=== PATIENT | female | born 1960 | race Two or more races ===

== ENCOUNTER 2024-07-15 18:38 | Emergency (ER) | payer BC, OTHER ==
[~2024-07-15] VITALS: Ht 162.6 cm; Wt 55.0 kg
[2024-07-15 18:40] VITALS: O2SAT 99
[2024-07-15] MEDS ORDERED: MECLIZINE 25MG TABLET PO ONE (19:30)
[2024-07-15 19:43] LABS: CLARITY URINE CLEAR (CLEAR); COLOR URINE YELLOW (YELLOW); GLUCOSE URINE NEGATIVE (NEGATIVE); KETONES URINE NEGATIVE (NEGATIVE); LEUKOCYTE ESTERASE URINE NEGATIVE (NEGATIVE); NITRITE URINE NEGATIVE (NEGATIVE); OCCULT BLOOD URINE NEGATIVE (NEGATIVE); PH URINE 6.5 (4.5-8.0); PROTEIN URINE NEGATIVE (NEGATIVE); SPECIFIC GRAVITY URINE 1.005 (1.005-1.030); UROBILINOGEN URINE 0.2 E.U./dL (0.2-1.0)
[2024-07-15] MEDS: MECLIZINE 12.5MG TABLET PO NR (20:00)
[2024-07-15 20:06] LABS: BASOPHILS % 0.8 % (0.0-2.0); EOSINOPHILS % 2.8 % (0.0-5.0); HEMATOCRIT. 39.1 % (36.0-48.0); HEMOGLOBIN. 13.4 g/dL (12.0-16.0); LYMPHOCYTES % 25.6 % (20.0-50.0); MEAN CORPUSCULAR HGB CONC 34.3 g/dL (31.0-37.0); MEAN CORPUSCULAR VOLUME 96.2 fL (81.0-99.0); MEAN PLATELET VOLUME 9.7 fl (7.4-10.4); MONOCYTES % 7.4 % (2.0-8.0); NEUTROPHILS % 63.4 % (40.0-76.0); PLATELET 227 x1000/uL (130-400); RED BLOOD CELL COUNT 4.07 mill/uL (4.2-5.4); WHITE BLOOD COUNT 6.1 x1000/uL (4.5-11.0)
[2024-07-15 20:11] LABS: CHLORIDE 106 mEq/L (98-107); POTASSIUM 4.1 mEq/L (3.5-5.1); SODIUM 137 mEq/L (136-145)
[2024-07-15 20:12] LABS: CALCIUM 9.7 mg/dL (8.7-10.4); CARBON DIOXIDE 26 mEq/L (21-32)
[2024-07-15 20:17] LABS: CREATININE 0.7 mg/dL (0.6-1.0); GLUCOSE 104 mg/dL (70-105); TROPONIN I HIGH SENSITIVITY 5 ng/L (3.0-34); UREA NITROGEN BLOOD 11 mg/dL (9-23)
[2024-07-15 23:07] VITALS: BP 158/77; PULSE 64; RESP 14; TEMP 36.55848; O2SAT 99
== END 2024-07-15 23:46 | disposition short-term general hospital (02) ==
LOC: ER 18:38
DX: R42 Dizziness and giddiness (principal); R11.0 Nausea; F41.9 Anxiety disorder, unspecified; I10 Essential (primary) hypertension; Z88.0 Allergy status to penicillin
CPT/HCPCS: 80048; 81003; 85025; 84484; 36415; 71045; 70450; 93005; 99285; J8597; Z7610

== ENCOUNTER 2025-05-24 17:13 | Emergency (ER) | payer OTHER ==
[~2025-05-24] VITALS: Ht 157.5 cm; Wt 63.0 kg
[2025-05-24 17:15] VITALS: O2SAT 100
[2025-05-24 18:00] LABS: CLARITY URINE CLEAR (CLEAR); COLOR URINE YELLOW (YELLOW); GLUCOSE URINE NEGATIVE (NEGATIVE); KETONES URINE NEGATIVE (NEGATIVE); LEUKOCYTE ESTERASE URINE NEGATIVE (NEGATIVE); NITRITE URINE NEGATIVE (NEGATIVE); OCCULT BLOOD URINE NEGATIVE (NEGATIVE); PH URINE 6.5 (4.5-8.0); PROTEIN URINE NEGATIVE (NEGATIVE); SPECIFIC GRAVITY URINE 1.005 (1.005-1.030); UROBILINOGEN URINE 0.2 E.U./dL (0.2-1.0)
[2025-05-24 18:28] LABS: BASOPHILS % 0.7 % (0.0-2.0); EOSINOPHILS % 2.0 % (0.0-5.0); HEMATOCRIT. 35.3 % (36.0-48.0); HEMOGLOBIN. 12.1 g/dL (12.0-16.0); LYMPHOCYTES % 21.5 % (20.0-50.0); MEAN PLATELET VOLUME 9.2 fl (7.4-10.4); MONOCYTES % 7.3 % (2.0-8.0); NEUTROPHILS % 68.5 % (40.0-76.0); PLATELET 253 x1000/uL (130-400); RED BLOOD CELL COUNT 3.68 mill/uL (4.2-5.4); RED CELL DISTRIBUTION WIDTH 12.9 % (11.6-14.6)
[2025-05-24 18:37] LABS: INR 1.0
[2025-05-24 18:42] LABS: CREATININE 0.7 mg/dL (0.6-1.0)
[2025-05-24 18:43] LABS: UREA NITROGEN BLOOD 17 mg/dL (9-23)
[2025-05-24] MEDS ORDERED: LOPE2CAP14 MT (18:43)
[2025-05-24 18:44] LABS: ASPARTATE AMINOTRANSFERASE 28 IU/L (<34)
[2025-05-24 18:45] LABS: BILIRUBIN DIRECT 0.1 mg/dL (<=3.0); BILIRUBIN TOTAL 0.5 mg/dL (0.1-1.0); PROTEIN TOTAL 6.9 g/dL (6.0-8.3)
[2025-05-24] MEDS ORDERED: ONDA-239 PO (18:45)
[2025-05-24 19:24] VITALS: BP 140/53; PULSE 62; RESP 16; TEMP 36.7; O2SAT 98
== END 2025-05-24 19:28 | disposition home or self-care (01) ==
LOC: ER 17:13
DX: B34.9 Viral infection, unspecified (principal); I10 Essential (primary) hypertension; F41.9 Anxiety disorder, unspecified; G43.909 Migraine, unspecified, not intractable, without status migrainosus; Z79.899 Other long term (current) drug therapy; Z71.3 Dietary counseling and surveillance; Z88.0 Allergy status to penicillin
CPT/HCPCS: 36415; 71045; 80048; 80076; 81003; 85025; 99284

== ENCOUNTER 2025-06-01 20:11 | Emergency (ER) | payer OTHER ==
[~2025-06-01] VITALS: Ht 165.1 cm; Wt 53.0 kg
[~2025-06-01 20:11] MED LIST: LOPE2CAP14 MT; ONDA-239 PO
[2025-06-01 21:14] VITALS: O2SAT 99
[2025-06-01 21:40] LABS: BASOPHILS % 0.5 % (0.0-2.0); EOSINOPHILS % 2.7 % (0.0-5.0); HEMATOCRIT. 33.5 % (36.0-48.0); HEMOGLOBIN. 11.8 g/dL (12.0-16.0); LYMPHOCYTES % 29.0 % (20.0-50.0); MEAN PLATELET VOLUME 9.1 fl (7.4-10.4); MONOCYTES % 6.5 % (2.0-8.0); NEUTROPHILS % 61.3 % (40.0-76.0); PLATELET 224 x1000/uL (130-400); RED BLOOD CELL COUNT 3.53 mill/uL (4.2-5.4); RED CELL DISTRIBUTION WIDTH 12.6 % (11.6-14.6)
[2025-06-01 21:48] LABS: INR 1.0
[2025-06-01 21:56] LABS: CREATININE 0.6 mg/dL (0.6-1.0); UREA NITROGEN BLOOD 10 mg/dL (9-23)
[2025-06-01 21:58] LABS: ASPARTATE AMINOTRANSFERASE 31 IU/L (<34); BILIRUBIN DIRECT 0.2 mg/dL (<=3.0)
[2025-06-01 21:59] LABS: BILIRUBIN TOTAL 1.0 mg/dL (0.1-1.0); PROTEIN TOTAL 6.7 g/dL (6.0-8.3)
[2025-06-01 22:52] LABS: TROPONIN I HIGH SENSITIVITY 5 ng/L (3.0-34)
[2025-06-02] MEDS: ONDANSETRON 4MG ODT PO ONE (01:23)
[2025-06-02] MEDS: KETOROLAC 15MG/ML VIAL IM ONE (01:26)
[2025-06-02 01:28] VITALS: TEMP 36.7; O2SAT 100
[2025-06-02 01:39] VITALS: BP 109/61; PULSE 72; RESP 12
[2025-06-02] MEDS: KETOROLAC 15MG/ML VIAL IM NR (01:39)
[2025-06-02] MEDS: ONDANSETRON 4MG ODT PO NR (01:39)
== END 2025-06-02 01:30 | disposition short-term general hospital (02) ==
LOC: ER 20:11 → EDBEDREQTM 23:27 → EDBEDREQ 23:27 → ER 06-02 01:30
DX: I45.81 Long QT syndrome (principal); E87.6 Hypokalemia; I10 Essential (primary) hypertension; Z88.0 Allergy status to penicillin; Z90.710 Acquired absence of both cervix and uterus
CPT/HCPCS: 99285; 71045; 80076; 80048; 83690; 85025; 85610; 84484; 36415; 93005; 96372; J1885; Q0162